=== PATIENT | male | born 1935 | race Caucasian/White ===

== ENCOUNTER 2017-07-27 10:32 | Emergency (ER) | payer OTHER ==
[~2017-07-27] VITALS: Ht 175.3 cm; Wt 93.0 kg
[2017-07-27] MEDS ORDERED: CRESTOR10 MG PO (10:38)
[2017-07-27] MEDS ORDERED: CARVEDILOL12.5 MG PO (10:38)
[2017-07-27] MEDS ORDERED: CARVEDILOL25 MG PO (10:38)
[2017-07-27] MEDS ORDERED: PREDNISONE 10 M10 M1 PO (10:38)
[2017-07-27] MEDS ORDERED: COUMADIN 5 MG TA5 M1 PO (10:39)
[2017-07-27] MEDS ORDERED: FISH OIL 1,001000 M2 PO (10:39)
[2017-07-27] MEDS ORDERED: COUMADIN 2.5MG2.5 M1 PO (10:39)
[2017-07-27] MEDS ORDERED: POTASSIUM99 M1 PO (10:39)
[2017-07-27] MEDS ORDERED: ASPIR 8181 MG PO (10:39)
[2017-07-27] MEDS ORDERED: UNICOMPLEX M TA1 TA1 PO (10:40)
[2017-07-27] MEDS ORDERED: GLUCOSAMINE HC500 MG PO (10:40)
[2017-07-27] MEDS ORDERED: VITAMIN B-12500 MC5 PO (10:41)
[2017-07-27 11:12] LABS: HEMATOCRIT 39.3 % (42.0-52.0); HEMOGLOBIN 12.9 gm/dL (14.0-18.0); MCH 32.9 pg (26.0-34.0); MCHC 32.7 g/dL (28.0-37.0); MCV 100.6 fL (80.0-100.0); PLATELET COUNT 115 thou/uL (150-400); RBC 3.91 mil/uL (4.50-6.00); RDW 18.9 % (10.5-14.5); WBC 9.1 thou/uL (4.0-11.0)
[2017-07-27 11:14] LABS: MANUAL DIFF YES
[2017-07-27 11:24] LABS: INR 3.2; PROTIME 32.2 Seconds (9.3-11.4)
[2017-07-27 11:47] LABS: ABSOLUTE NEUTROPHILS 6.3 thou/uL (1.4-8.2); ANISOCYTOSIS SLIGHT; POIKILOCYTOSIS SLIGHT; TOTAL CELL COUNT 100
[2017-07-27 12:05] VITALS: BP 140/85
== END 2017-07-27 12:07 | disposition home or self-care (01) ==
LOC: ER 10:32
PROVIDERS: Nurse Practitioner Family
DX: R04.0 Epistaxis (principal); I10 Essential (primary) hypertension; I48.91 Unspecified atrial fibrillation; Z95.0 Presence of cardiac pacemaker; Z79.82 Long term (current) use of aspirin; Z88.1 Allergy status to other antibiotic agents; Z88.8 Allergy status to other drugs, medicaments and biological substances